=== PATIENT | male | born 2005 | race Two or more races ===

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

== ENCOUNTER 2024-06-30 18:25 | Emergency (ER) | payer MEDICAID, OTHER ==
[~2024-06-30] VITALS: Ht 182.9 cm; Wt 69.9 kg
--- NOTE | 2024-06-30 18:59 | ED.PDOC ---
Mi. trauma (HPI) HPI Comments C/O RIGHT ELBOW PAIN X TODAY S/P SLIP AND FALL AT WORK. DENIES HEAD INJURY OR LOC. numbness or weakness or any other known injury Chief Complaint: Upper Extremity Time Seen by MD: 18:37 Primary Care Provider: Sixto Perea Reviewed notes: Nurses Notes, Medications, Allergies Allergies: Coded Allergies: NO KNOWN ALLERGIES (Unverified , 08/31/20) Information Source: Patient Mode of Arrival: Ambulatory Past Medical History PAST MEDICAL HISTORY: Denies Surgical History: Denies all surgeries Family History Family History: Unknown Social History Smoker: Non-Smoker Alcohol: Denies ETOH Use Drugs: Denies Drug Use Constitutional: denies: chills, diaphoresis, fatigue, fever, malaise, sweats, weakness, others EENTM: denies: blurred vision, double vision, ear bleeding, ear discharge, ear drainage, ear pain, ear ringing, eye pain, eye redness, hearing loss, mouth pain, mouth swelling, nasal discharge, nose bleeding, nose congestion, nose pain, photophobia, tearing, throat pain, throat swelling, voice changes, others Respiratory: denies: cough, hemoptysis, orthopnea, SOB at rest, shortness of breath, SOB with excertion, stridor, wheezing, others Cardiovascular: denies: chest pain, dizzy spells, diaphoresis, Dyspnea on exertion, edema, irregular heart beat, left arm pain, lightheadedness, palpitations, PND, syncope, others Gastrointestinal: denies: abdomen distended, abdominal pain, blood streaked bowels, constipated, diarrhea, dysphagia, difficulty swallowing, hematemesis, melena, nausea, poor appetite, poor fluid intake, rectal bleeding, rectal pain, vomiting, others Genitourinary: denies: burning, dysuria, flank pain, frequency, hematuria, incontinence, penile discharge, penile sore, pain, testicle pain, testicle swelling, urgency, others Neurological: denies: dizziness, fainting, headache, left sided numbness, left sided weakness, numbness, paresthesia, pre-existing deficit, right sided numbness, right sided weakness, seizure, speech problems, tingling, tremors, weakness, others Musculoskeletal: reports: others (RIGHT ELBOW PAIN AND SWELLING); denies: back pain, gout, joint pain, joint swelling, muscle pain, muscle stiffness, neck pain Integumetry: denies: bruises, change in color, change in hair/nails, dryness, laceration, lesions, lumps, rash, wounds, others Allergic/Immunocompromised: denies: Difficulty Healing, Frequent Infections, Hives, Itching, others Hematologic/Lymphatic: denies: anemia, blood clots, easy bleeding, easy bruising, swollen glands, others Endocrine: denies: excessive hunger, excessive sweating, excessive thirst, excessive urination, flushing, intolerance to cold, intolerance to heat, unexplained weight gain, unexplained weight loss, others Psychiatric: denies: anxiety, bipolar disorder, depression, hopeless, panic disorder, schizophrenia, sleepless, suicidal, others Physical Exam General Appearance: No Apparent Distress, Normal HEENT: Pharynx Normal Neck: Full Range of Motion, Non-Tender Respiratory: Lungs Clear, No Respiratory Distress, Normal Breath Sounds Cardiovascular: No Murmur, Normal Peripheral Pulses, Regular Rate/Rhythm Breast Exam: Deferred Gastrointestinal: Non Tender, Soft Genitalia: Deferred Pelvic: Deferred Rectal: Deferred Extremities: Normal capillary refill, Normal inspection, Normal range of motion, Non-tender, No pedal edema Musculoskeletal : Location: Right Extremity Location: Elbow (MODERATE EDEMA POSTERIOR ELBOW WITH MODERATE TENDERNESS STRENGTH SENSORY MOTION INTACT SUPERFICIAL ABRASION NOTED POSITIVE RADIAL PULSE) Apperance: Normal Neurologic: Alert, security expert II-XII nml as Tested, No Motor Deficits, Normal Affect, Normal Mood, No Sensory Deficits Cerebellar Function: Normal Reflexes: Normal Skin: Dry, Normal Color, Warm Lymphatic: No Adenopathy Was a procedure done? Was a procedure done?: No Differential Diagnosis Multiple Trauma: Fractures, Hematoma X-Ray, Labs, Meds, VS Vital Signs Date Time Temp Pulse Resp B/P (MAP) Pulse Ox O2 Delivery O2 Flow Rate FiO2 06/30/24 19:04 71 16 98 Room Air 06/30/24 19:04 98.8 71 16 134/77 (96) 98 98.8 06/30/24 18:49 98.8 71 16 134/77 (96) 98 98.8 Current Medications Medications (Trade) Dose Ordered Sig/Moise Route Start Time Stop Time Status Last Admin Ketorolac Tromethamine (Toradol Injection) 30 mg ONCE ONCE IM 06/30/24 18:45 06/30/24 18:46 DC 06/30/24 19:08 X-Ray, Labs, Meds, VS Comment ELBOW X-RAY SHOWS NO ACUTE FRACTURES OSSEOUS LESIONS OR DISLOCATIONS. ELBOW CONTUSION WITH EDEMA. PATIENT WAS GIVEN TORADOL 30 MG IM REPORTS IMPROVEMENT IN PAIN REQUESTING DISCHARGE AT THIS TIME.. SCRIPT IBUPROFEN TO PATIENT'S PHARMACY ON FILE. TAKE MEDICATIONS PRESCRIBED SIDE EFFECTS DISCUSSED. ADVISED ON RICE ADVISED TO FOLLOW UP WITH [facility]OY[facility] BEFORE RETURNING TO WORK BEING CLEARED. ADVISED ON ER RETURN PRECAUTIONS PATIENT INDICATES UNDERSTANDING AGREES WITH DISCHARGE PLAN OF CARE Time of 1ST Reevaluation: 18:45 Reevaluation 1ST: Unchanged Time of 2ND Reevaluation: 19:14 Reevaluation 2ND: Improved Patient Education/Counseling: Diagnosis, Treatment, Prognosis, Need For Follow Up Family Education/Counseling: No Family Present Departure 1 Departure Time of Disposition: 19:14 Impression: Primary Impression: Contusion of right elbow, initial encounter Disposition: 01 HOME / SELF CARE / HOMELESS Condition: Stable e-Prescriptions Ibuprofen (Ibuprofen) 800 Mg Tab 800 MG PO Q8HP PRN for 6 Days, #18 TAB Prov: DOLLY ROSARIO 06/30/24 Discharged With: Self Critical Care Note Critical Care Time?: No Stability Stability form required: DOLLY Francisco June 30, 2024 18:59
[2024-06-30 19:04] VITALS: BP 134/77; PULSE 71; RESP 16; TEMP 98.8; O2SAT 98
[2024-06-30] MEDS: KETOROLAC TROMETH 60MG/2ML VIAL IM ONE (19:08)
--- NOTE | 2024-06-30 19:09 | DVH ---
CLINICAL INDICATION: INJURY/SWELLING/PAIN TECHNIQUE: 3 radiographic views of the right elbow were obtained. Comparison: None FINDINGS/IMPRESSION: There is no evidence of acute fracture or dislocation. The visualized joint space is well maintained. The alignment is anatomical. There is no radiopaque foreign body. HS:Y
[2024-06-30] MEDS ORDERED: IBUP-1456 PO (19:17)
== END 2024-06-30 19:50 | disposition home or self-care (01) ==
LOC: ER 18:25
DX: S50.01XA Contusion of right elbow, initial encounter (principal); W01.0XXA Fall on same level from slipping, tripping and stumbling without subsequent striking against object, initial encounter; Y93.89 Activity, other specified; Y92.89 Other specified places as the place of occurrence of the external cause; Y99.0 Civilian activity done for income or pay
CPT/HCPCS: 73080; 96372; 99283; J1885